=== PATIENT | male | born 1985 | race Caucasian/White ===

== ENCOUNTER → 2017-04-21 | Outpatient (CLI) | payer OTHER ==
--- NOTE | 2017-04-21 09:16 | US ---
EXAMINATION TYPE: US abdomen complete DATE OF EXAM: 04/21/2017 COMPARISON: NONE CLINICAL HISTORY: R10.9 abd pain. Intermittent abdomen x 3 weeks, gets worse after eating spicy/fatty foods. EXAM MEASUREMENTS: Liver Length: 17.2 cm Gallbladder Wall: 0.2 cm CBD: 0.5 cm Spleen: 10.0 cm Right Kidney: 11.0 x 6.1 x 6.6 cm Left Kidney: 10.1 x 6.3 x 5.9 cm Pancreas: visualized portions wnl, tail obscured by overlying midline bowel gas Liver: measures in upper limits of normal at 17.2cm Gallbladder: wnl Evidence for sonographic Ricci's sign: no CBD: visualized portions wnl, limited by overlying bowel gas Spleen: visualized portions wnl, limited by rib shadowing Right Kidney: wnl Left Kidney: wnl Upper IVC: wnl Abd Aorta: visualized portions wnl, partially obscured by overlying midline bowel gas The liver is homogenous. The intrahepatic portion of the IVC and proximal abdominal aorta are within normal limits. There is no evidence of cholelithiasis. Common bile duct is unremarkable. The visu alized portions of the pancreas are homogenous. The spleen is unremarkable. Kidneys are symmetric a nd free of hydronephrosis. No renal lesions are seen. IMPRESSION: No distinct abnormality appreciated.
== END | disposition home or self-care (01) ==
LOC: RADUSWWP 08:12
PROVIDERS: ATTEND Family Medicine
DX: R10.9 Unspecified abdominal pain (principal)
CPT/HCPCS: 76700

== ENCOUNTER 2019-12-01 19:13 | Emergency (ER) | payer OTHER ==
[2019-12-01 19:19] VITALS: RESP 18
--- NOTE | 2019-12-01 21:01 | US ---
EXAMINATION TYPE: US venous doppler duplex LE RT DATE OF EXAM: 12/01/2019 8:43 PM COMPARISON: NONE CLINICAL HISTORY: pain,swelling, R/O DVT. Pain and swelling right leg x 2 weeks. No hx of DVT. Patien t does not take blood thinners. SIDE PERFORMED: Right TECHNIQUE: The lower extremity deep venous system is examined utilizing real time linear array sonog master with graded compression, doppler sonography and color-flow sonography. VESSELS IMAGED: Common Femoral Vein Deep Femoral Vein Greater Saphenous Vein * Femoral Vein Popliteal Vein Small Saphenous Vein * Proximal Calf Veins (* superficial vessels) DESCRIPTION: High-resolution multiplanar grayscale imaging was obtained with color Doppler and pulse- wave Doppler and with the use of physiologic maneuvers. Slightly limited evaluation due to patient robert dy habitus. EIV not visualized. Limited visibility of prox calf veins. IMPRESSION: Negative for DVT, left lower extremity.
--- NOTE | 2019-12-01 21:32 | ED ---
Extremity Problem HPI - General Chief complaint: Extremity Problem,Nontraumatic Stated complaint: Possible Blood clot in leg Time Seen by Provider: 12/01/19 19:21 Source: patient Mode of arrival: ambulatory Limitations: no limitations - History of Present Illness Initial comments: 34-year-old male presenting today for chief complaint of possible blood clot in right leg he states that he has had a tingling sensation in his right thigh from 6 inches below the groin to 4 days above the knee he states is very localized to the lateral aspect. Denies any severe pain denies redness he states is appears to be more swollen on the medial aspect in comparison with the left. Patient is concerned about blood clot denies any chest pain shortness of breath denies any calf pain swelling or history of previous DVT or pulmonary embolism denies any recent surgeries denies immobilization denies any clotting disorders. Patient denies low back pain denies any direct injury or trauma. Patient denies any headache or dizziness. Patient states his history of hypertension on off he states he does not currently take any medications. Remaining review of systems negative - Related Data Allergies Allergy/AdvReac Type Severity Reaction Status Date / Time No Known Allergies Allergy Verified 12/01/19 19:19 Review of Systems ROS Statement: Those systems with pertinent positive or pertinent negative responses have been documented in the HPI. ROS Other: All systems not noted in ROS Statement are negative. Past Medical History Past Medical History: Hypertension History of Any Multi-Drug Resistant Organisms: None Reported Past Surgical History: Hernia Repair Past Psychological History: No Psychological Hx Reported Smoking Status: Current every day smoker Past Alcohol Use History: Occasional Past Drug Use History: None Reported General Exam - General Exam Comments Initial Comments: General: The patient is awake and alert, in no distress, and does not appear acutely ill. Eye: Pupils are equal, round and reactive to light, extra-ocular movements are intact. No nystagmus. There is normal conjunctiva bilaterally. No signs of icterus. Ears, nose, mouth and throat: There are moist mucous membranes and no oral lesions. Neck: The neck is supple, there is no tenderness or JVD. Cardiovascular: There is a regular rate and rhythm. No murmur, rub or gallop is appreciated. Respiratory: Lungs are clear to auscultation, respirations are non-labored, breath sounds are equal. No wheezes, stridor, rales, or rhonchi. Musculoskeletal: Upon inspection no skin changes. no pain to palpation, sensation intact. Normal ROM, no tenderness at the hip and knee. Strength 5/5 of the LE b/l.Radial and DP pulses equal bilaterally 2+. Neurological: A&O x 3. CN II-XII intact grossly, There are no obvious motor or sensory deficits. Coordination appears grossly intact. Speech is normal. Skin: Skin is warm and dry and no rashes or lesions are noted. No calf pain or swelling. Psychiatric: Cooperative, appropriate mood & affect, normal judgment. Limitations: no limitations Course Vital Signs 12/01/19 12/01/19 12/01/19 19:15 19:40 21:42 Temperature 98.9 F 98.3 F Pulse Rate 105 H 81 Respiratory 18 18 Rate Blood Pressure 158/105 144/96 150/95 O2 Sat by Pulse 98 97 Oximetry Medical Decision Making - Medical Decision Making Pt presenting parathesia and right leg swellling. No swelling on exam braxton reciated. No LE edema. Pulses WNL. Sensation intact. no skin changes, no pain. Denies low back pain, weakkness. Denies POLLOCK, nausea. No focal neurological deficits. Patient US (-) DVT. Discussed case with Josue Gallagher who is agreeable to discharge at this time. Patient is to return if there are new or woresening sympotms. Patient discharged appearing well. Disposition Clinical Impression: Complaint of paresthesia, Elevated blood pressure reading, Right leg swelling Disposition: HOME SELF-CARE Condition: Good Instructions (If sedation given, give patient instructions): Hypertension (ED) Additional Instructions: Please use medication as discussed. Please follow-up with PCP in 1-2 days, recording blood pressures at home. Please return to emergency room if the symptoms increase or worsen or for any other concerns. Is patient prescribed a controlled substance at d/c from ED?: No Referrals: None,Stated [Primary Care Provider] - 1-2 days Time of Disposition: 21:19
[2019-12-01 21:45] VITALS: BP 150/95; PULSE 81; TEMP 98.3
== END 2019-12-01 21:45 | disposition home or self-care (01) ==
LOC: EC 19:13
DX: R20.2 Paresthesia of skin (principal); R22.42 Localized swelling, mass and lump, left lower limb; I10 Essential (primary) hypertension; F17.200 Nicotine dependence, unspecified, uncomplicated
CPT/HCPCS: 99284